=== PATIENT | male | born 1950 | race Two or more races ===

== ENCOUNTER 2024-10-04 12:33 | Emergency (ER) | payer OTHER, MEDICAID | END 2024-10-04 12:49 | disposition left against medical advice (07) | LOC: ER 12:33 | DX: R45.851 Suicidal ideations (principal); Z53.21 Procedure and treatment not carried out due to patient leaving prior to being seen by health care provider ==

== ENCOUNTER 2024-10-04 13:52 | Emergency (ER) | payer MEDICARE, MEDICAID ==
[~2024-10-04] VITALS: Ht 172.7 cm; Wt 75.5 kg
--- NOTE | 2024-10-04 14:18 | ED.PDOC ---
History of Present Illness HPI Comments 74-year-old male presents with a chief complaint of suicidal ideation and muscle pain. Patient reports that he is "tired of the pain for years" because "I smoke pot and it hurts my lungs and feels like my chest is burning, but I cannot stop". Patient reports that his pain is "in my lungs". Patient reported to triage that he was suicidal and that he was planning on overdosing on his pills. Patient denies any specific plan to take his life. Patient also mentions having diarrhea. Chief Complaint: Suicidal Time Seen by MD: 14:02 Primary Care Provider: BIMAL Reviewed Notes: Medications, Allergies Allergies: Coded Allergies: Codeine (Verified Allergy, Severe, 10/04/24) Penicillinase (Verified Allergy, Severe, 10/04/24) Information Source: Patient Mode of Arrival: Ambulatory Severity: Moderate Timing: Months Duration: Since onset Prehospital treatment: None Past Medical History PAST MEDICAL HISTORY: Denies Surgical History: Denies all surgeries Family History Family History: Reviewed,noncontributory to illness Social History Smoker: Non-Smoker Alcohol: Denies ETOH Use Drugs: Denies Drug Use Lives In: Home Constitutional: denies: chills, diaphoresis, fatigue, fever, malaise, sweats, weakness, others EENTM: denies: blurred vision, double vision, ear bleeding, ear discharge, ear drainage, ear pain, ear ringing, eye pain, eye redness, hearing loss, mouth pain, mouth swelling, nasal discharge, nose bleeding, nose congestion, nose pain, photophobia, tearing, throat pain, throat swelling, voice changes, others Respiratory: denies: cough, hemoptysis, orthopnea, SOB at rest, shortness of breath, SOB with excertion, stridor, wheezing, others Cardiovascular: denies: chest pain, dizzy spells, diaphoresis, Dyspnea on exertion, edema, irregular heart beat, left arm pain, lightheadedness, palpitations, PND, syncope, others Gastrointestinal: denies: abdomen distended, abdominal pain, blood streaked bowels, constipated, diarrhea, dysphagia, difficulty swallowing, hematemesis, melena, nausea, poor appetite, poor fluid intake, rectal bleeding, rectal pain, vomiting, others Genitourinary: denies: burning, dysuria, flank pain, frequency, hematuria, incontinence, penile discharge, penile sore, pain, testicle pain, testicle swelling, urgency, others Neurological: denies: dizziness, fainting, headache, left sided numbness, left sided weakness, numbness, paresthesia, pre-existing deficit, right sided numbness, right sided weakness, seizure, speech problems, tingling, tremors, weakness, others Musculoskeletal: reports: muscle pain; denies: back pain, gout, joint pain, joint swelling, muscle stiffness, neck pain, others Integumetry: denies: bruises, change in color, change in hair/nails, dryness, laceration, lesions, lumps, rash, wounds, others Allergic/Immunocompromised: denies: Difficulty Healing, Frequent Infections, Hives, Itching, others Hematologic/Lymphatic: denies: anemia, blood clots, easy bleeding, easy bruising, swollen glands, others Endocrine: denies: excessive hunger, excessive sweating, excessive thirst, excessive urination, flushing, intolerance to cold, intolerance to heat, unexplained weight gain, unexplained weight loss, others Psychiatric: reports: suicidal; denies: anxiety, bipolar disorder, depression, hopeless, panic disorder, schizophrenia, sleepless, others All Other Systems: Reviewed and Negative Physical Exam General Appearance: Moderate Distress, Normal HEENT: Normal ENT Inspection, Pharynx Normal, TMs Normal Neck: Full Range of Motion, Non-Tender, Normal, Normal Inspection Respiratory: Chest Non-Tender, Lungs Clear, No Accessory Muscle Use, No Respiratory Distress, Normal Breath Sounds Cardiovascular: No Edema, No JVD, No Murmur, No Gallop, Normal Peripheral Pulses, Regular Rate/Rhythm Breast Exam: Deferred Gastrointestinal: No Organomegaly, Non Tender, No Pulsatile Mass, Normal Bowel Sounds, Soft Genitalia: Deferred Pelvic: Deferred Rectal: Deferred Extremities: No calf tenderness, Normal capillary refill, Normal inspection, Normal range of motion, Non-tender, No pedal edema Musculoskeletal : Apperance: Normal Neurologic: Alert, internet merchant II-XII nml as Tested, No Motor Deficits, Normal Affect, Normal Mood, No Sensory Deficits Cerebellar Function: Normal Reflexes: Normal Skin: Dry, Normal Color, Warm Peripheral Pulses: 3+ Radial (R), 3+ Radial (L) Lymphatic: No Adenopathy Was a procedure done? Was a procedure done?: No Differential Dx Considerations may include: Suicidal ideation Electrolyte imbalance X-Ray, Labs, Meds, VS Vital Signs Date Time Temp Pulse Resp B/P (MAP) Pulse Ox O2 Delivery O2 Flow Rate FiO2 10/04/24 16:23 77 156/86 (109) 10/04/24 16:00 78 20 97 Room Air* 0 21 10/04/24 15:42 97.7 78 20 190/86 (120) 97 97.7 10/04/24 14:02 97.6 81 16 157/79 (105) 98 Lab Test 10/04/24 14:30 10/04/24 14:26 Range/Units Urine Opiates Screen Pending Urine Fentanyl Screen Pending Urine Barbiturates Screen Pending Urine Phencyclidine Screen Pending Urine Amphetamines Screen Pending Urine Benzodiazepines Screen Pending Urine Cocaine Screen Pending Urine Cannabinoids Screen Pending White Blood Count 10.6 4.4-10.8 10^3/uL Red Blood Count 4.79 4.5-5.90 10^6/uL Hemoglobin 14.5 13.5-17.5 g/dL Hematocrit 44.9 41.0-53.0 % Mean Corpuscular Volume 93.7 80.0-100.0 fL Mean Corpuscular Hemoglobin 30.3 28.0-32.0 pg Mean Corpuscular Hemoglobin Concent 32.3 32.0-36.0 g/dL Red Cell Distribution Width 16.2 H 11.8-14.3 % Platelet Count 261 140-450 10^3/uL Mean Platelet Volume 8.4 6.9-10.8 fL Neutrophils (%) (Auto) 74.1 37.0-80.0 % Lymphocytes (%) (Auto) 15.7 10.0-50.0 % Monocytes (%) (Auto) 8.1 0.0-12.0 % Eosinophils (%) (Auto) 1.2 0.0-7.0 % Basophils (%) (Auto) 0.9 0.0-2.0 % Neutrophils # (Auto) 7.9 1.6-8.6 10 ^3/uL Lymphocytes # (Auto) 1.7 0.4-5.4 10 ^3/uL Monocytes # (Auto) 0.9 0-1.3 10 ^3/uL Eosinophils # (Auto) 0.1 0-0.8 10 ^3/uL Basophils # (Auto) 0.1 0-0.2 10 ^3/uL Nucleated Red Blood Cells 0.1 % Sodium Level 137 136-145 mmol/L Potassium Level 4.6 3.5-5.1 mmol/L Chloride Level 109 H 98-107 mmol/L Carbon Dioxide Level 19 L 20-31 mmol/L Anion Gap 9 5-15 Blood Urea Nitrogen 47 H 9-23 mg/dL Creatinine 2.09 H 0.700-1.30 mg/dL Glomerular Filtration Rate Calc 33 >90 mL/min BUN/Creatinine Ratio 22.5 H 10.0-20.0 Serum Glucose 129 H 74-106 mg/dL Calcium Level 10.4 8.7-10.4 mg/dL Total Bilirubin 0.5 0.2-1.0 mg/dL Aspartate Amino Transferase (AST) 25 13-40 U/L Alanine Aminotransferase (ALT) 57 H 7-40 U/L Alkaline Phosphatase 116 46-116 U/L Total Protein 7.7 5.7-8.2 g/dL Albumin 5.1 H 3.2-4.8 g/dL Current Medications Medications (Trade) Dose Ordered Sig/Jax Route Start Time Stop Time Status Last Admin Lorazepam (Ativan Tablet) 1 mg ONCE ONCE PO 10/04/24 15:45 10/04/24 15:46 DC 10/04/24 15:49 Patient alert. Generalized symptoms. States that he has suicidal ideation. Vitals stable. Lungs clear. Chronic symptoms. Saturation pristine on room air. Heart rate within normal limits. No leg swelling. Medically cleared. Psychiatric evaluation. X-Ray, Labs, Meds, VS Comment Addendum by Dr. Marleny Castañeda: I discussed the case with Dr. Stubbs who interviewed the patient. He is not feel the patient required a 5150 hold and was comfortable having the patient discharged with outpatient psychiatric follow-up. Patient will be provided with community resources for follow-up. We both also recommended that if the patient desires to continue using cannabis, he not smoke it but rather consider using edibles. Patient is is alert, oriented, and capable of making informed decisions. He was advised regarding or recommendations. He expressed understanding and agreed. Currently he appears stable for discharge. Time of 1ST Reevaluation: 14:32 Reevaluation 1ST: Unchanged Patient Education/Counseling: Diagnosis, Treatment, Prognosis Family Education/Counseling: Diagnosis, Treatment, Prognosis Departure 1 Departure Time of Disposition: 15:32 Impression: Primary Impression: Cannabis dependence Disposition: 01 HOME / SELF CARE / HOMELESS Condition: Stable Referrals Psychiatric outpatient resources Additional Instructions: Follow-up with your primary doctor for referral to a psychiatric professional within the next 2 days. Consider marijuana edibles instead of smoking marijuana. Discharged With: Self Critical Care Note Critical Care Time?: No Stability Stability form required: No Heart Score Heart Score: Heart Score Response (Comments) Value History N/A 0 EKG N/A 0 Age N/A 0 Risk Factors N/A 0 Troponin N/A 0 Total 0 I personally scribed for LESLY YE MD ([email or web address]) on 10/04/24 at 14:18. Electronically submitted by Andrew Stapleton ([email or web address]). LESLY YE MD Oct 04, 2024 14:18 BAY ANN MD Oct 04, 2024 18:38
[2024-10-04 15:00] LABS: Basophils # (auto) 0.1 10 ^3/uL (0-0.2); Basophils % (auto) 0.9 % (0.0-2.0); Eosinophils # (auto) 0.1 10 ^3/uL (0-0.8); Eosinophils % (auto) 1.2 % (0.0-7.0); Hematocrit 44.9 % (41.0-53.0); Hemoglobin 14.5 g/dL (13.5-17.5); Lymphocytes # (auto) 1.7 10 ^3/uL (0.4-5.4); Lymphocytes % (auto) 15.7 % (10.0-50.0); Mean Corpuscular Hemoglobin 30.3 pg (28.0-32.0); Mean Corpuscular Hgb Conc. 32.3 g/dL (32.0-36.0); Mean Corpuscular Volume 93.7 fL (80.0-100.0); Monocytes # (auto) 0.9 10 ^3/uL (0-1.3); Monocytes % (auto) 8.1 % (0.0-12.0); Neutrophils # (auto) 7.9 10 ^3/uL (1.6-8.6); Neutrophils % (auto) 74.1 % (37.0-80.0); Nucleated Red Blood Cells % 0.1 %; Platelet Count (auto) 261 10^3/uL (140-450); Red Blood Cells 4.79 10^6/uL (4.5-5.90); Red Cell Distribution Width 16.2 % (11.8-14.3); White Blood Cell 10.6 10^3/uL (4.4-10.8)
[2024-10-04 15:09] LABS: Anion Gap 9 (5-15); Aspartate Aminotransferase 25 U/L (13-40); BUN/Creatinine Ratio 22.5 (10.0-20.0); Calcium 10.4 mg/dL (8.7-10.4); Potassium 4.6 mmol/L (3.5-5.1); Sodium 137 mmol/L (136-145)
[2024-10-04 15:10] LABS: Bilirubin, Total 0.5 mg/dL (0.2-1.0); Total Protein 7.7 g/dL (5.7-8.2)
[2024-10-04 15:21] LABS: Alanine Aminotransferase 57 U/L (7-40); Albumin 5.1 g/dL (3.2-4.8); Alkaline Phosphatase 116 U/L (46-116); Blood Urea Nitrogen 47 mg/dL (9-23); Carbon Dioxide 19 mmol/L (20-31); Chloride 109 mmol/L (98-107); Glucose 129 mg/dL (74-106)
[2024-10-04 15:42] VITALS: TEMP 97.7
[2024-10-04] MEDS: LORazepam 0.5 MG TAB PO ONE (15:49)
[2024-10-04 16:00] VITALS: PULSE 78; RESP 20; O2SAT 97
--- NOTE | 2024-10-04 18:33 | DVHINCON2 ---
Date of Service if different f: Oct 04, 2024 Consultation ([facility]) Progress: Somewhat better Labs Laboratory Tests Test 10/04/24 14:26 10/04/24 14:30 White Blood Count 10.6 10^3/uL (4.4-10.8) Red Blood Count 4.79 10^6/uL (4.5-5.90) Hemoglobin 14.5 g/dL (13.5-17.5) Hematocrit 44.9 % (41.0-53.0) Mean Corpuscular Volume 93.7 fL (80.0-100.0) Mean Corpuscular Hemoglobin 30.3 pg (28.0-32.0) Mean Corpuscular Hemoglobin Concent 32.3 g/dL (32.0-36.0) Red Cell Distribution Width 16.2 % (11.8-14.3) Platelet Count 261 10^3/uL (140-450) Mean Platelet Volume 8.4 fL (6.9-10.8) Neutrophils (%) (Auto) 74.1 % (37.0-80.0) Lymphocytes (%) (Auto) 15.7 % (10.0-50.0) Monocytes (%) (Auto) 8.1 % (0.0-12.0) Eosinophils (%) (Auto) 1.2 % (0.0-7.0) Basophils (%) (Auto) 0.9 % (0.0-2.0) Neutrophils # (Auto) 7.9 10 ^3/uL (1.6-8.6) Lymphocytes # (Auto) 1.7 10 ^3/uL (0.4-5.4) Monocytes # (Auto) 0.9 10 ^3/uL (0-1.3) Eosinophils # (Auto) 0.1 10 ^3/uL (0-0.8) Basophils # (Auto) 0.1 10 ^3/uL (0-0.2) Nucleated Red Blood Cells 0.1 % Sodium Level 137 mmol/L (136-145) Potassium Level 4.6 mmol/L (3.5-5.1) Chloride Level 109 mmol/L (98-107) Carbon Dioxide Level 19 mmol/L (20-31) Anion Gap 9 (5-15) Blood Urea Nitrogen 47 mg/dL (9-23) Creatinine 2.09 mg/dL (0.700-1.30) Glomerular Filtration Rate Calc 33 mL/min (>90) BUN/Creatinine Ratio 22.5 (10.0-20.0) Serum Glucose 129 mg/dL (74-106) Calcium Level 10.4 mg/dL (8.7-10.4) Total Bilirubin 0.5 mg/dL (0.2-1.0) Aspartate Amino Transf (AST/SGOT) 25 U/L (13-40) Alanine Aminotransferase (ALT/SGPT) 57 U/L (7-40) Alkaline Phosphatase 116 U/L (46-116) Total Protein 7.7 g/dL (5.7-8.2) Albumin 5.1 g/dL (3.2-4.8) Appetite: Limited Side effects of medications: No Appearance: Stated age, Clean Psychomotor activity: Calm Behavioral: Cooperative Eye contact: Appropriate Speech: Mumbled Affect: Appropriate Mood: Dysphoric (at times) Thought processes: Tangential Thought content: WNL Suicidal ideations: Absent Homicidal ideations: Absent Orientation: Person, Place, Situation Memory intact: Recent Intellect: Average Abstractability: [employer] Concentration: Adequate Attention: Adequate Judgement: WNL Insight: Good Vitals Vital Signs Date Time Temp Pulse Resp B/P (MAP) Pulse Ox O2 Delivery O2 Flow Rate FiO2 10/04/24 16:23 77 156/86 (109) 10/04/24 16:00 20 97 Room Air* 0 21 10/04/24 15:42 97.7 97.7 Treatment plan discussed: With staff Medication adjusted: No Labs ordered: No Psychotherapy provided: Yes Type: Voluntary Diagnosis: Schizophrenia by history. F12.20 Plan : The pt is here to stop using cannabis b/c he cannot stop on his own. Smokes all day long, is having bad trips more often than good trips. Does not like life without cannabis high. Denies depression outside of when he is coming off the cannabis or if he hasn't used it. Pt denies any SI, HI or AVH. Does have hx of suicide attempts, currently denies feeling like wanting to be . Pt is l ooking for resources to help him stop smoking cannabis. Not recommending 5150 at this time or inpatient psychiatric treatment. Pt can be referred to [facility] resources and suggested that he transition to oral gummies instead of smoking. History of Present Illness Reason for Consult : SI. HPI : Pt shows left forearm where there are healed cuts brom about 5 months ago. Pt denies any current SI. Pt says that he smokes pot and sometimes he gets high and other times the experience is not good. Pt says that it hurts and ortega when he smokes cannabis now. Pt says that he is here because he wants to quit smoking cannabis. He already quit smoking and has emphysema. Pt doesn't enjoy it as much. Denies feeling depressed, all mood symptoms are related to cannabis. He smokes all day long and can't stop on his own. Feels his thoughts and ideas turning paranoid at times with the cannabis. The more he uses, the worse he feels every day. Past Psychiatric History : Pt had ECT when he was 20. Pt has been in and out of psychiatric hospitals since age 25, was admitted for suicide attempts. Pt was in [facility] for some time. Pt says he was diagnosed with schizophrenia. Takes cogentin and something else he doesn't know the name of. Tried haldol and rispredal, didn't like it. Pt has OP provider. Past Medical History : Emphysema. Endentulous, CAD s/p CABG, pain in left leg, 1 nephrectomy, hard of hearing, HTN. Social History : Lives with by himself. , disabled. Assessment/Diagnosis/Plan Reviewed: Care Plan NONA PICHARDO MD Oct 04, 2024 18:33
[2024-10-04 18:50] VITALS: BP 140/70; PULSE 75; RESP 20; O2SAT 98
[2024-10-05 15:57] LABS: Cannabinoid Screen, Urine Pos (NEGATIVE)
[2024-10-05 16:01] LABS: Amphetamine Screen, Urine Neg (NEGATIVE); Barbiturate Scree,Urine Neg (NEGATIVE); Benzodiazephine Screen, Urine Neg (NEGATIVE); Cocaine Screen, Urine Neg (NEGATIVE); Opiate Scree,Urine Neg (NEGATIVE); Phencyclidine Screen, Urine Neg (NEGATIVE)
== END 2024-10-04 19:52 | disposition home or self-care (01) ==
LOC: ER 13:52
DX: F12.20 Cannabis dependence, uncomplicated (principal); Z88.1 Allergy status to other antibiotic agents; Z88.6 Allergy status to analgesic agent
CPT/HCPCS: 36415; 80053; 80307; 85025